=== PATIENT | male | born 1975 | race American Indian/Alaskan Native ===

== ENCOUNTER 2016-12-24 10:24 | Outpatient (CLI) | payer OTHER ==
--- NOTE | 2016-12-24 11:43 | XRay Report ---
AP PELVIS: AP view of the pelvis shows normal pelvic contour and soft tissues. The hips are symmetric and within normal limits as are the sacroiliac joints. IMPRESSION: Normal pelvis.
--- NOTE | 2016-12-24 11:43 | XRay Report ---
RIGHT KNEE, 3 views: The bony architecture is intact without evidence of fracture or dislocation. No significant soft tissue abnormality is seen. IMPRESSION: Normal right knee.
--- NOTE | 2016-12-24 11:43 | XRay Report ---
LUMBOSACRAL SPINE, 3 VIEWS: History: Back pain Findings: The vertebral bodies, disk spaces and posterior elements are intact. No compression deformity or malalignment. The SI joints are symmetric and unremarkable. Impression: 1. No evidence for acute injury to the lumbar spine.
--- NOTE | 2016-12-24 11:43 | XRay Report ---
RIGHT SHOULDER: Routine views demonstrate normal bony and soft tissue structures with normal joint alignment of the shoulder. IMPRESSION: Normal study.
== END 2016-12-24 10:25 | disposition home or self-care (01) ==
LOC: XRAY 10:24
PROVIDERS: ATTEND Internal Medicine
DX: S06.9X0A Unspecified intracranial injury without loss of consciousness, initial encounter (principal); F43.10 Post-traumatic stress disorder, unspecified; M25.841 Other specified joint disorders, right hand; M54.9 Dorsalgia, unspecified; M79.606 Pain in leg, unspecified; X58.XXXA Exposure to other specified factors, initial encounter; Y93.89 Activity, other specified; Y92.89 Other specified places as the place of occurrence of the external cause; Y99.8 Other external cause status
CPT/HCPCS: 72100; 72170